=== PATIENT | female | born 1970 | race Caucasian/White ===

== ENCOUNTER 2017-03-30 07:21 | Outpatient (CLI) | payer MEDICARE, MEDICAID ==
--- NOTE | 2017-03-30 11:39 | Ultrasound Report ---
COMPLETE ABDOMINAL ULTRASOUND: 03/30/2017 CLINICAL INDICATION: Elevated LFTs. TECHNIQUE: Real-time scanning was performed with account executive sales representative static images obtained. FINDINGS: The liver measures 15.6 cm. Hepatic echogenicity is increased, compatible with fatty infi ltration. No focal parenchymal lesion or intrahepatic biliary dilatation is present. The common brittney e duct measures 4 mm. The gallbladder is normal. The visualized pancreas is unremarkable. The kidn eys are normal, with the right measuring 11.0 cm, and the left measuring 10.7 cm. The spleen measure s 8 cm, and demonstrates normal echotexture. The abdominal aorta is normal in caliber. The inferior vena cava is unremarkable. No free fluid is present. IMPRESSION: FATTY INFILTRATION OF THE LIVER. JOB #: [id number] JOB #:[id number]
== END 2017-03-30 07:22 | disposition home or self-care (01) ==
LOC: DI 07:21
PROVIDERS: ATTEND Internal Medicine Rheumatology
DX: K76.0 Fatty (change of) liver, not elsewhere classified (principal)
CPT/HCPCS: 76700

== ENCOUNTER 2020-06-22 16:49 | Outpatient (CLI) | payer MEDICARE, MEDICAID | END 2020-06-22 16:50 | disposition home or self-care (01) | LOC: COV 16:49 | PROVIDERS: ATTEND Family Medicine | DX: Z20.822 Contact with and (suspected) exposure to COVID-19 (principal) ==

== ENCOUNTER 2022-01-25 11:46 | Outpatient (CLI) | payer MEDICARE, MEDICAID | END 2022-01-25 11:47 | disposition home or self-care (01) | LOC: DI 11:46 | PROVIDERS: ATTEND Internal Medicine Rheumatology | DX: Z53.9 Procedure and treatment not carried out, unspecified reason (principal) ==